=== PATIENT | female | born 2000 | race African-American/Black ===

== ENCOUNTER 2024-07-11 18:35 | Emergency (ER) | payer BC, SELFPAY ==
--- NOTE | ~2024-07-11 | XR_ITS ---
CLINICAL HISTORY: pain 1 view chest x-ray Comparison: None Findings: The lungs are clear. Heart size is normal. No acute fracture. IMPRESSION: 1. No acute findings. This document has been electronically signed by: Shailesh Foss MD on 07/11/2024 23:11:05
--- NOTE | 2024-07-11 18:39 | ECG_ITS ---
Test Reason : CHEST PAIN Blood Pressure : */* mmHG Vent. Rate : 87 BPM Atrial Rate : 87 BPM P-R Int : 140 ms QRS Dur : 68 ms QT Int : 364 ms P-R-T Axes : 69 73 -17 degrees QTcB Int : 438 ms Normal sinus rhythm T wave abnormality, consider inferior ischemia Abnormal ECG No previous ECGs available Referred By: Generic ED Physician Electronically Signed By: SADIA GUERRA MD
--- NOTE | 2024-07-11 19:12 | ED_ITS ---
HPI - General Adult General Chief complaint: General Medical Stated complaint: chest pain / SOB Time Seen by Provider: 07/11/24 21:15 Source: patient Limitations: no limitations History of Present Illness ED Provider: Emilee Bui PA-C HPI narrative: 23-year-old female with a history of asthma presents with chest tightness since yesterday. Patient states she feels anterior chest tightness as if she can not take a full breath. She ran out of her albuterol. Denies recent cough or cold symptoms no fever. Related Data Previous Rx's ?Medication ?Instructions ?Recorded albuterol sulfate 90 mcg/actuation 2 puff inhalation Q4-6H PRN 07/12/24 aerosol inhaler shortness of breath or wheezing #6.7 grams prednisone 20 mg tablet 40 mg (2 x 20 mg) PO DAILY #8 tabs 07/12/24 Allergies Allergy/AdvReac Type Severity Reaction Status Date / Time No Known Allergies Allergy Verified 07/11/24 19:16 Review of Systems 2 Review of Systems: Yes all other systems are reviewed and are negative Constitutional: Constitutional: Denies fatigue and Denies fever(s) Cardiovascular: Cardiovascular: Reports chest pain and Reports dyspnea Respiratory: Respiratory: Denies cough, Reports dyspnea and Reports wheezing Gastrointestinal: Gastrointestinal: Denies nausea and Denies vomiting Endocrine: Endocrine: Denies fatigue Allergic/Immunologic: Allergic/Immunologic: Reports wheezing PMFSH Past Medical History Attestation statement: The following information was validated with the patient. Social History Social History Advance Directives: No Advance Directives Information Provided: No Do you have a plan to hurt others: No Plan Patient : No Physical Exam ED Vital Signs: Vital Signs - 24 hr 07/11/24 19:13 07/11/24 22:06 07/11/24 23:13 Temperature 97.7 F 98.1 F Pulse Rate 85 81 75 Respiratory Rate 16 19 18 Blood Pressure 112/74 112/61 Pulse Oximetry 99 100 Oxygen Delivery Method Room Air Room Air BMI result Body Mass Index 43.9 Const Other: Alert well-appearing Orientation/consciousness: patient oriented x3 Resp Other: Nonlabored respirations speaking in full sentences, lungs diminished on exam no wheezing Cardio Other: Normal peripheral perfusion Skin Other: Warm dry no rash Neuro General: patient oriented x3, gait normal, no focal motor deficits and CN's II- XI intact bilaterally Psych Other: Cooperative Course Course Course Narrative: This is a rapid medical exam performed by Genoveva Delgado NP: Additional HPI, ROS, PE not included below will be deferred to primary provider. Patient is a 23 year old F presenting with complaint of chest pain and shortness of breath since this morning, headache. States symptoms improved during the day then returned an hour ago. Denies cough/fever. Plan: EKG, labs, viral swab Reevaluation(s) Reevaluation #1: Patient feels much improved after 1 updraft eager for discharge Medications Administered Discontinued Medications Generic Name Dose Route Start Last Admin Trade Name Freq PRN Reason Stop Dose Admin Albuterol Sulfate 7.5 mg/ 10 mg 07/11/24 23:12 07/11/24 23:18 Albuterol Sulfate 2.5 mg INHALE 07/11/24 23:13 10 mg ONCE ONE Administration Prednisone 40 mg 07/11/24 22:54 07/11/24 23:03 Prednisone 20 Mg Tablet PO 07/11/24 22:55 40 mg ONCE ONE Administration Medical Decision Making Medical Decision Making [facility] Narrative: 23-year-old female with a history of asthma presents with chest tightness since yesterday. Patient states she feels anterior chest tightness as if she can not take a full breath. She ran out of her albuterol. Denies recent cough or cold symptoms no fever. Problem: Asthma History: Per patient I have considered the following differential diagnoses: Plan: Patient here with asthma exacerbation that is mild, screening labs and a viral panel with a chest x-ray were ordered from triage. We will be giving an updraft and steroid. ACS was considered, however the patient has no risk factors for coronary artery disease, her symptoms are consistent with asthma. A cardiac enzyme and EKG were obtained. The patient does not use tobacco, she is afebrile without a productive cough, bronchitis/pneumonia less likely as well. I have independently reviewed the following tests: Labs: No leukocytosis, not anemic, no electrolyte abnormality troponin negative not , viral panel negative EKG: Normal sinus rhythm, rate 87, no ischemic changes no ectopy QTC 438 Chest x-ray:Findings: The lungs are clear. Heart size is normal. No acute fracture. IMPRESSION: 1. No acute findings. Lab Data 07/11/24 19:22 07/11/24 19:22 Labs: Lab Results 07/11/24 Range/Units 19:22 WBC 8.9 (4.8-10.8) X10*3/uL RBC 4.32 (4.20-5.50) X10*6/uL Hgb 12.9 (12.0-16.0) g/dl Hct 37.7 (37.0-47.0) % MCV 87.3 (80.0-98.0) fL MCH 29.9 (27.0-33.0) pg MCHC 34.2 (31.0-35.0) g/dl RDW 12.7 (11.0-16.0) % Plt Count 286 (160-400) X10*3/uL MPV 9.7 (9.4-12.3) fL Immature Gran % (Auto) 0.3 (0.0-0.4) % Neut % (Auto) 53.0 (45-73) % Lymph % (Auto) 34.3 (20-40) % Billings % (Auto) 8.7 (2-11) % Eos % (Auto) 2.7 (0-4) % Baso % (Auto) 1.0 (0-2) % Lymph # (Auto) 3.1 (1.2-4.9) X10*3/uL Billings # (Auto) 0.8 (0.1-1.2) X10*3/uL Eos # (Auto) 0.2 (0.0-0.4) X10*3/uL Baso # (Auto) 0.1 (0.0-0.2) X10*3/uL Abs Immat Gran (auto) 0.03 (0.00-0.03) X10*3/uL Absolute Neuts (auto) 4.7 (2.0-8.3) x10*3/uL Absolute Nucleated RBC 0.000 (0.0-0.012) X10*3/uL Nucleated RBC % (auto) 0.0 (0.0-0.2) /100WBC PT 12.2 (10.9-12.4) SEC INR 1.1 (0.9-1.1) Sodium 141 (135-145) mmol/L Potassium 3.7 (3.3-5.1) mmol/L Chloride 108 (96-108) mmol/L Carbon Dioxide 24 (22-29) mmol/L Anion Gap 13 (12-20) BUN 10 (9-16) mg/dL Creatinine 0.70 (0.5-1.4) mg/dL Estim Creat Clear Calc 134.3 Estimated GFR > 60 Random Glucose 105 (60-115) mg/dL Calcium 8.8 (8.4-10.2) mg/dL Total Bilirubin 0.6 (0.0-1.0) mg/dL AST 23 (5-31) U/L ALT 15 (0-31) U/L Alkaline Phosphatase 46 (39-117) U/L Troponin I High Sens < 2.7 (<3.5-17.0) ng/L Total Protein 7.4 (6.5-8.0) g/dL Albumin 4.2 (3.5-5.0) g/dL Beta HCG, Quant < 2 mIU/mL Influenza Type A (PCR) NEGATIVE (Negative) Influenza Type B (PCR) NEGATIVE (Negative) RSV RNA Qual (PCR) NEGATIVE (Negative) SARS-CoV-2 RNA (RT-PCR) NEGATIVE (Negative) Discharge Plan Discharge Clinical Impression: Asthma exacerbation Patient Disposition: Home, Self-Care Instructions: Asthma (ED) Additional Instructions: All of your screening labs were normal, you were also tested for influenza RSV and COVID the viral panel was negative the chest x-ray is clear there was no pneumonia. You are being treated for your asthma. See home care instructions. Use the albuterol as needed for cough and wheezing, take the steroid as directed. Follow up with your primary care provider as needed. Prescriptions: New albuterol sulfate 90 mcg/actuation HFA aerosol inhaler 2 puff inhalation Q4-6H PRN (Reason: shortness of breath or wheezing) Qty: 6.7 0RF prednisone 20 mg tablet 40 mg PO DAILY Qty: 8 0RF Print Language: Samoan
[2024-07-11 19:13] VITALS: BP 112/74; PULSE 85; RESP 16; TEMP 36.5; O2SAT 99; BMI 43.9
[2024-07-11 19:30] LABS: MANUAL DIFF FLAG NO
[2024-07-11 19:33] LABS: Basophils Absolute Auto 0.1 X10*3/uL (0.0-0.2); Eosinophils Absolute Auto 0.2 X10*3/uL (0.0-0.4); Eosinophils Percent Auto 2.7 % (0-4); Hematocrit 37.7 % (37.0-47.0); Hemoglobin 12.9 g/dl (12.0-16.0); Imm Gran Abs Auto 0.03 X10*3/uL (0.00-0.03); Imm Gran Pct Auto 0.3 % (0.0-0.4); Lymphocytes Absolute Auto 3.1 X10*3/uL (1.2-4.9); Lymphocytes Percent Auto 34.3 % (20-40); Mean Corpuscular HGB Conc 34.2 g/dl (31.0-35.0); Mean Corpuscular Hemoglobin 29.9 pg (27.0-33.0); Mean Corpuscular Volume 87.3 fL (80.0-98.0); Mean Platelet Volume 9.7 fL (9.4-12.3); Monocytes Absolute Auto 0.8 X10*3/uL (0.1-1.2); Monocytes Percent Auto 8.7 % (2-11); Neutrophils Absolute Auto 4.7 x10*3/uL (2.0-8.3); Platelet Count 286 X10*3/uL (160-400); Red Blood Count 4.32 X10*6/uL (4.20-5.50); Red Cell Distribution Width 12.7 % (11.0-16.0); White Blood Count 8.9 X10*3/uL (4.8-10.8)
[2024-07-11 19:39] LABS: INTERNATIONAL NORM RATIO 1.1 (0.9-1.1); Prothrombin Time 12.2 SEC (10.9-12.4)
[2024-07-11 19:51] LABS: Alanine Aminotransferase 15 U/L (0-31); Albumin Level 4.2 g/dL (3.5-5.0); Alkaline Phosphatase 46 U/L (39-117); Anion Gap 13 (12-20); Aspartate Amino Transferase 23 U/L (5-31); Bilirubin Total 0.6 mg/dL (0.0-1.0); Blood Urea Nitrogen 10 mg/dL (9-16); Calcium 8.8 mg/dL (8.4-10.2); Carbon Dioxide 24 mmol/L (22-29); Chloride 108 mmol/L (96-108); Creatinine Clr Calc Pharmacy 134.3; Estimated Glomerular Filt Rate > 60; Glucose Random 105 mg/dL (60-115); Potassium 3.7 mmol/L (3.3-5.1); Sodium 141 mmol/L (135-145); Total Protein 7.4 g/dL (6.5-8.0)
[2024-07-11 19:55] LABS: HCG Quantitative < 2 mIU/mL; Troponin-I High Sensitivity < 2.7 ng/L (<3.5-17.0)
[2024-07-11 20:06] LABS: Influenza A PCR NEGATIVE (Negative); Influenza B PCR NEGATIVE (Negative); Resp Syncy Virus RNA Qual PCR NEGATIVE (Negative); SARS COV2 PCR INHOUSE NEGATIVE (Negative)
--- OUTSIDE RECORDS SUMMARY | 2024-07-11 21:06 | XMS_ITS | Encounter Summary ---
Author Organization [facility] Address [address] [place] [address] Phone Care Team Providers Care Power Hair Clipper Name Role Phone Winifred Bonilla MD Primary Care Provider [phone] Encounter Details Date Type Department Care Team (Late st Contact Info) Description 10/15/2016 Conversion Encounter [facility] [address] [place] [address] Social History Tobacco Use Types Packs/Day Years Used Date Smoking Tobacco: Never Assessed Comments Unknown Sex and Gender Information Value Date Recorded Sex Assigned at Not on file Legal Sex Female 4:57 PM EDT Gender Identity Not on file Sexual Orientation Straight 09/03/2021 3: 32 PM EDT documented as of this encounter Plan of Treatment Not on file documented as of this encounter Visit Diagnoses Not on filedocumented in this encounter Care Teams Power Hair Clipper Relationship Specialty Start Date End Date Winifred Bonilla MD [address] [place] [address] PCP - General Pediatrics 10/11/19 05/13/22 documented as of this encounter
--- OUTSIDE RECORDS SUMMARY | 2024-07-11 21:06 | XMS_ITS | Encounter Summary ---
Author Organization [facility] Address [address] [place] [address] Phone Care Team Providers Care Television Audio Engineer Name Role Phone Winifred Bonilla MD Primary Care Provider [phone] Encounter Details Date Type Department Care Team (Late st Contact Info) Description 10/23/2015 Documentation [facility] Family Medicine [address] [place] [address] Family Medicine, Physician [address], [place] [address] Social History Tobacco Use Types Packs/Day Years [...] on filedocumented in this encounter Care Teams Television Audio Engineer Relationship Specialty Start Date End Date Winifred Bonilla MD [address] [place] [address] PCP - General Pediatrics 10/11/19 05/13/22 documented as of this encounter
--- OUTSIDE RECORDS SUMMARY | 2024-07-11 21:06 | XMS_ITS | Clinical Summary ---
Author Organization [facility] it Address [id number] [place] [id number] Care Team Providers Care Manufacturing Technology Analyst Name Role Phone Unavailable Primary Care Provider Unavailabl e Social History Tobacco Use Types Packs/Day Years Used Date Smoking Tobacco: Never Assessed Comments Unknown Sex and Gender Information Value Date Recorded Sex Assigned at Not on file Legal Sex Female 1:45 PM EST Gender Identity Not on file Sexual Orientation Not on file Plan of Treatment Health Maintenance Due Date Last Done Comments Gonorrhea/Chlamydia Screening 2000 HPV Vaccines (1 - 3-dose series) 08/21/2015 Meningococcal B Vaccine (1 o f 2 - Standard) 2016 DTaP,Tdap,and Td Vaccines (1 - Tdap) 08/21/2019 Hepatitis B Vaccines (1 of 3 - 19+ 3-dose series) 08/21/2019 Pneumococcal Vaccine: Pediat rics (0 to 5 Years) and At-Risk Patients (6 to 64 Years) (1 of 2 - PCV) 08/21/2019 Cervical Cancer Screening: P ap Smear 2021 Depression Screening 01/27/2022 HIV Screening 01/27/2022 Hepatitis C Screening 01/27/2022 Social Influencers of Health Screening 01/27/2022 COVID-19 Vaccine (1 - 2023-2 5 season) 2023 Influenza Vaccine (Season Ended) 2024 HIB Vaccines Aged Out No longer eligi ble based on patient's age to complete this topic Hepatitis A Vaccines Aged Out No long er eligible based on patient's age to complete this topic IPV Vaccines Aged Out No longer eligi ble based on patient's age to complete this topic MMR Vaccines Aged Out No longer eligi ble based on patient's age to complete this topic Meningococcal ACWY Vaccine Aged Out N o longer eligible based on patient's age to complete this topic RSV Immunization Patients Un anh 20 months Aged Out No longer eligible b ased on patient's age to complete this topic Varicella Vaccines Aged Out No longer eligible based on patient's age to complete this topic
--- OUTSIDE RECORDS SUMMARY | 2024-07-11 21:06 | XMS_ITS | Clinical Summary ---
Author Organization [facility] Address [address] [place] [id number] Care Team Providers Care Drag Out Man Name Role Phone Pcp, No Primary Care Provider Unavailabl e Allergies No known active allergies Medications ProAir HFA 108 (90 Base) MCG/ACT inhaler Inhale 2 puffs every 4 (four) hours as needed. Wheezing. 09/29/2021 Active oxybutynin (DITROPAN-XL) 10 MG 24 hr tablet Take 1 tablet (10 mg total) by mouth daily. 12/22/2021 Active Active Problems Problem Noted Date Diagnosed Date Migraine with aura and witho ut status migrainosus, not intractable 09/22/2017 Overview (01/01/2022): 12/26/2019 (age 19yr): As of well visit 01/25/2019 'Migraines have been much better in past 6 months'. Hypnotherapy helps quite a lot. History: Followed by neuro in the past: Dr. Munoz at [facility]. Last visit 01/26/2017. Rx's sumatriptan. Dr Dunham - hypnotherapy, last visit 11/16/2017. Seems to help quite a lot. Last Assessment & Plan: 01/16/2020 (age 19yr): Carleen's mother reports headaches are related to screen use only, and she is not currently having an issues. I requested phone visit to discuss this and the possibility of OCP Rx. Mild intermittent asthma 12/19/2008 Overview (01/01/2022): 12/26/2019 (age 19yr): Albuterol prn with colds. Not exercise symptoms 01/17 rare use of albuterol Last Assessment & Plan: 12/26/2019 (age 19yr): Albuterol prn with colds. Not exercise symptoms Family History Medical History Relation Name Comments Melanoma Paternal Grandmother Breast cancer Paternal Great-Grandmother Relation Name Status Comments Paternal Grandmother Alive Paternal Great-Grandmother Alive Social History Tobacco Use Types Packs/Day Years Used Date Smoking Tobacco: Never Smokeless Tobacco: Never Tobacco Cessation:Counseling Given: Not Answered Alcohol Use Standard Drinks/Week Comments Never 0 (1 standard drink = 0.6 oz pur e alcohol) Comments No Sex and Gender Information Value Date Recorded Sex Assigned at Not on file Legal Sex Female 9:22 PM EST Gender Identity Not on file Sexual Orientation Not on file Last Filed Vital Signs Vital Sign Reading Time Taken Comments Blood Pressure 116/85 01/01/2022 2:38 PM EDT Pulse 72 01/01/2022 2:38 PM EDT Temperature 36.8 ??C (98.2 ??F) 11/08/2021 6:17 PM ED T Respiratory Rate 16 01/01/2022 2:38 PM EDT Oxygen Saturation 98% 11/08/2021 6:17 PM EDT Inhaled Oxygen Concentration - - Weight 44.5 kg (98 lb) 01/01/2022 2:38 PM EDT Height 154.9 cm (5' 1 ) 01/01/2022 2:38 PM EDT Body Mass Index 18.52 01/01/2022 2:38 PM EDT Plan of Treatment Health Maintenance Due Date Last Done Comments Hepatitis C Virus Screening 2000 HIV Screening 2013 HPV Vaccines (1 - 3-dose series) 08/21/2015 DTaP/Tdap/Td Vaccines (1 - Tdap) 08/21/2019 Hepatitis B Vaccines (1 of 3 - 19+ 3-dose series) 08/21/2019 Pneumococcal Vaccine: Pediat winnie (0-5 Years) and At-Risk Patients (6 to 49 Years) (1 of 2 - PCV) 08/21/2019 Pap Smear (Ages 21-65) 2021 COVID-19 Vaccine (3 - 2023-2 5 season) 2023 08/14/2020, 07/17/2020 Influenza Vaccine 09/29/2024 12/26/2019, , 11/24/2017, Additional history exists Insurance [facility] [employer] [facility] [employer] Care Teams Drag Out Man Relationship Specialty Start Date End Date Pcp, No PCP - General General Medicine 04/29/21
--- OUTSIDE RECORDS SUMMARY | 2024-07-11 21:06 | XMS_ITS ---
Author Name [facility] Organization Unknown Encounters Encounter Type Encounter Reason Primary Diagnosis Location Date Ambulatory Acute vaginitis [facility] 01/01/2022 Emergency Dysuria [facility] 11/08/2021 Emergency Unspecified inju ry of head, initial encounter [facility] 04/29/2021 Care Team Organization Name Specialty Phone Email Start Date End Da te [facility] PCP,No Primary Care 01/01/2022 [facility] NO PCP Primary Care 04/29/2021 01/01/2022
--- OUTSIDE RECORDS SUMMARY | 2024-07-11 21:06 | XMS_ITS | Encounter Summary ---
Author Organization [facility] Address [address] [place] [address] Phone Care Team Providers Care Aws Architect Name Role Phone Winifred Bonilla MD Primary Care Provider [phone] Encounter Details Date Type Department Care Team (Late st Contact Info) Description 01/22/2014 Documentation [facility] [place] [address] [place] [address] Family Medicine, Physician [address], [place] [id number] Social History Tobacco Use Types Packs/Day Years [...] on filedocumented in this encounter Care Teams Aws Architect Relationship Specialty Start Date End Date Winifred Bonilla MD [address] [place] [address] PCP - General Pediatrics 10/11/19 05/13/22 documented as of this encounter
[2024-07-11 22:06] VITALS: BP 112/61; PULSE 81; RESP 19; TEMP 36.7; O2SAT 100
[2024-07-11] MEDS: predniSONE 20 MG TABLET 40 MG PO (23:03)
[2024-07-11 23:13] VITALS: PULSE 75; RESP 18; O2SAT 97
[2024-07-11] MEDS: Albuterol Sulfate 7.5 MG, Albuterol Sulfate (0.083%) 2.5 MG 10 MG INHALE (23:18)
[2024-07-12 00:24] VITALS: BP 112/61; PULSE 75; RESP 18; TEMP 36.7; O2SAT 100
== END 2024-07-12 00:25 | disposition home or self-care (01) ==
PROVIDERS: Registered Nurse Emergency; Emergency Provider Emergency Medicine
DX: J45.901 Unspecified asthma with (acute) exacerbation (principal); R06.00 Dyspnea, unspecified; Z03.818 Encounter for observation for suspected exposure to other biological agents ruled out
CPT/HCPCS: 0241U; 71045; 80053; 84484; 84702; 85025; 85610; 93005; 94640; 99284; 99285

== ENCOUNTER → 2024-07-11 18:39 | Outpatient (BNV) | payer BC, SELFPAY | PROVIDERS: Emergency Provider Emergency Medicine; Visit Provider Internal Medicine Cardiovascular Disease | DX: R94.31 Abnormal electrocardiogram [ECG] [EKG] (principal); R07.9 Chest pain, unspecified | CPT/HCPCS: 93010 ==

== ENCOUNTER → 2024-07-11 21:59 | Outpatient (BNV) | payer BC, SELFPAY | PROVIDERS: Emergency Provider Emergency Medicine; Visit Provider Radiology Diagnostic Radiology | DX: R07.9 Chest pain, unspecified (principal) | CPT/HCPCS: 71045 ==